=== PATIENT | female | born 2000 | race Caucasian/White ===

== ENCOUNTER 2021-02-13 12:55 | Emergency (ER) | payer MEDICAID, SELFPAY ==
[2021-02-13 12:55] VITALS: BP 130/88; PULSE 86; RESP 16; TEMP 36.6; O2SAT 98; BMI 40.8
--- NOTE | 2021-02-13 13:20 | EX.ED.DYSGE1 ---
HPI History of Present Illness Chief Complaint: Nausea/Vomiting Informant: patient Onset/Context/Timing Onset: Days Context: Gradual Onset Timing: Intermittent Current Severity: Moderate Maximum Severity: Moderate Narrative Narrative: Patient presents the emergency department nausea vomiting. Patient states is been going on for about a week. She states that she is taken 2 home test which were negative. She states worse in the morning. She states that she started work today. She states she ate lunch and shortly after, began to have some abdominal cramping and spasm. She states that she had an episode of emesis. She was concerned there may been blood in it. She denies fever or chills. She denies other systemic symptoms. She has no history of abdominal surgery. Prior similar symptoms: No Recent Illness/Hospitalization: No PFSH PFSH Medical History (Updated 02/13/21 @ 13:54 by Dion Saleh) Anxiety Bipolar disorder Depression Home Medications aripiprazole [Abilify] 15 mg PO DAILY 02/13/21 [History Last Taken Unknown] buspirone [BuSpar] 30 mg PO BID 02/13/21 [History Last Taken Unknown] famotidine 20 mg PO BID #28 tablet 02/13/21 [Rx Last Taken Unknown] ondansetron 4 mg PO Q8H PRN PRN #10 tab 02/13/21 [Rx Last Taken Unknown] Allergy/AdvReac Type Severity Reaction Status Date / Time No Known Allergies Allergy Verified 02/13/21 12:58 Surgical History (Updated 02/13/21 @ 13:54 by Dion Saleh) History of section History of placement of ear tubes History of tonsillectomy and adenoidectomy Social History Smoking Status: Current every day smoker tobacco type: cigarettes ROS ROS ED Constitutional Constitutional ED: Denies chills or fever(s) Eyes Eyes: Denies blurry vision or change in vision ENT ENT ED: Denies ear pain or sore throat Cardiovascular Cardiovascular: Denies chest pain or palpitations Respiratory/Chest Respiratory/Chest: Denies cough, dyspnea or dyspnea on exertion Gastrointestinal Gastrointestinal: Reports nausea and vomiting Genitourinary Genitourinary ED: Denies dysuria or urinary frequency Musculoskeletal Musculoskeletal: Denies arthralgias or myalgias Integumentary Denies rash Neurologic Neurologic: Denies headache(s) or paresthesias Psychiatric Psychiatric: Denies anxiety or depression Endocrine Endocrinology: Denies polydipsia or polyuria Allergic/Immunologic Allergic/Immunologic ED: Denies urticaria EXAM Physical Exam Const Vital Signs: 02/13/21 12:55 Temperature 97.8 F Temperature Source Temporal Pulse Rate 86 Respiratory Rate 16 Blood Pressure 130/88 H Blood Pressure Mean 102 Pulse Ox 98 Oxygen Delivery Method Room Air Positive well nourished and well developed General Appearance ED: well developed HEENT Reports normocephalic, head/scalp atraumatic and moist mucous membranes Eyes PERRL and EOMs intact bilaterally Neck no lymphadenopathy and supple General: Negative for tenderness Chest Wall inspection of chest normal Resp normal respiratory effort and clear to auscultation bilaterally Cardio regular rate, regular rhythm and no murmurs GI normal to inspection, nondistended, normoactive bowel sounds Palpation: Negative for tender, guarding or rebound tenderness present Back/Spine no CVA tenderness Cervical Spine: Negative for cervical spine tenderness Thoracic Spine / Upper Back: Negative for thoracic spinal tenderness Extremity normal to inspection General Extremety ED: Negative for tenderness Neuro oriented x3 and CN's II-XII intact bilaterally Neuro Narrative: No focal deficits appreciated. Sensorium / Orientation: alert Psych mental status grossly normal Skin no rashes or lesions noted, no wounds and skin turgor normal MDM MDM MDM Narrative Medical decision making narrative: Patient presents with nausea vomiting. Her abdomen is soft and nontender. IV was established. The patient is concerned that she may be . Screening labs are obtained. Patient had no further emesis while she was here. Hemoglobin is stable. Her labs are unremarkable. Her was negative. Not sure if this is secondary to gastritis or peptic ulcer. I am going to treat the patient with Zofran and Pepcid. She is not on anticoagulants. She has normal vitals. She will be discharged home. Impression 1. Nausea vomiting Lab Data Attestation: I reviewed the patient's lab results. Labs: Laboratory Results - last 24 hr 02/13/21 02/13/21 02/13/21 13:50 13:50 13:50 WBC 9.6 RBC 5.27 Hgb 14.8 Hct 44.7 MCV 84.8 MCH 28.1 MCHC 33.1 RDW Std Deviation 42.5 RDW Coeff of [place] 13.7 Plt Count 292 MPV 11.1 Immature Gran % (Auto) 0.300 Neut % (Auto) 51.1 Lymph % (Auto) 40.2 [place] % (Auto) 5.0 Eos % (Auto) 3.0 Baso % (Auto) 0.4 Absolute Neuts (auto) 4.9 Absolute Lymphs (auto) 3.84 Nucleated RBC % 0 Sodium 139 Potassium 4.1 Chloride 109 H Carbon Dioxide 24.0 Anion Gap 6 BUN 11 Creatinine 0.72 Estim Creat Clear Calc 107.63 Est GFR (MDRD) Af Amer 133 Est GFR (MDRD) Non-Af 110 BUN/Creatinine Ratio 15.4 Glucose 86 Calcium 8.9 Serum , Qual NEGATIVE Discharge Plan Triage Chief Complaint: Nausea/Vomiting ED Provider: Jean Dodge Dx/Rx/DC Orders Instructions: ED PEPTIC ULCER vs GASTRITIS, ED Vomiting (Adult) Prescriptions: New famotidine [famotidine] 20 MG tablet 20 mg PO BID Qty: 28 RF: 0 ondansetron [ondansetron] 4 MG tablet 4 mg PO Q8H PRN PRN (Reason: Nausea) Qty: 10 RF: 0 No Action buspirone [BuSpar] 30 mg Tablet 30 mg PO BID RF: 0 aripiprazole [Abilify] 15 mg Tablet 15 mg PO DAILY RF: 0 Primary Care Provider: Care Physician,No Primary Referrals: Care Physician,No Primary [Primary Care Provider] -
[2021-02-13] MEDS: Ondansetron 4 MG/2 ML Vial IV (13:52)
[2021-02-13] MEDS: 0.9% Normal Saline 1,000 ML 1000 ML IV (13:52)
[2021-02-13 14:03] LABS: Absolute Lymphocyte Count 3.84 X10^3/uL (0.83-4.51); Absolute Neutrophil Count 4.9 X10^3/uL (2.0-7.7); Basophil# 0.04 X10^3/uL; Basophil% 0.4 % (0-1); Eosinophil# 0.29 X10^3/uL; Hematocrit 44.7 % (37-47); Hemoglobin 14.8 g/dL (12.0-15.0); Lymphocyte # 3.84 X10^3/ul (0.83-4.51); Lymphocyte % 40.2 % (19-41); Mean Corp Hgb Conc 33.1 g/dL (32-36); Mean Corpuscular Hgb 28.1 pg (27.0-32.0); Mean Corpuscular Volume 84.8 fL (81-99); Mean Platelet Vol. 11.1 fl (6.2-12.0); Monocyte# 0.48 X10^3/uL; NRBC Flagged by Analyzer 0 % (0-5); Neutrophil # 4.87 X10^3/uL (2.7-7.7); Neutrophil % 51.1 % (47-70); Platelet Count 292 K/mm3 (150-450); RBC Distribution Width CV 13.7 % (11.6-14.6); RBC Distribution Width SD 42.5 fl (35.1-43.9); Red Blood Count 5.27 M/mm3 (4.2-5.4); White Blood Count 9.6 K/mm3 (4.4-11.0)
[2021-02-13 14:14] LABS: Anion Gap 6 (5-15); BUN 11 mg/dL (7-18); BUN/Creat Ratio 15.4 RATIO (10-20); Calcium,Total 8.9 mg/dL (8.5-10.1); Chloride 109 mmol/L (98-107); Creatinine, Serum 0.72 mg/dL (0.55-1.02); EST Glomerular Filtration Rate 110 mL/min (>60); Est Glom Filt Rate - Afr Amer 133 mL/min (>60); Estimated Creatinine Clearance 107.63 ml/min; Glucose 86 mg/dL (74-106); Potassium 4.1 mmol/L (3.5-5.1); Sodium Level 139 mmol/L (136-145)
[2021-02-13 14:20] LABS: Internal QC Validated? YES +Cl - CLEAR BKGD; Pregnancy, Serum, hCG Quali. NEGATIVE Negative
[2021-02-13 14:38] VITALS: BP 124/56; PULSE 60; RESP 18; O2SAT 100
== END 2021-02-13 14:44 | disposition home or self-care (01) ==
LOC: ED 14:09
PROVIDERS: Emergency Provider Emergency Medicine
DX: R11.2 Nausea with vomiting, unspecified (principal); R10.9 Unspecified abdominal pain; F17.210 Nicotine dependence, cigarettes, uncomplicated; F41.9 Anxiety disorder, unspecified; Z79.899 Other long term (current) drug therapy
CPT/HCPCS: 80048; 84703; 85025; 96374; 99283; J7030; A4216; J2405

== ENCOUNTER 2021-06-30 20:29 | Emergency (ER) | payer MEDICAID, SELFPAY ==
[2021-06-30 20:30] VITALS: BP 114/71; PULSE 98; RESP 16; TEMP 36.3; O2SAT 99; BMI 38.5
--- NOTE | 2021-06-30 20:44 | ED.VIS.GI ---
HPI HPI - GI History of Present Illness Chief Complaint: Abd Pain Detail of Chief Complaint: Abdominal pain that started approximately 8:10 PM Informant: patient Abdominal Pain/Flank Pain Current Severity: Mild Nausea/Vomiting/Emesis GI Symptom: Positive for Nausea and Vomiting Narrative Narrative: Patient presents to the emergency department complaint of abdominal pain that started approximately 8:10 PM. Patient states that she was laying down when she started having severe pain in the upper abdomen that kind of radiates to the left side of her abdomen. Patient had eaten about a half an hour prior to the pain starting and she ate some fried potatoes and some turkey cold also. Patient did have 1 episode of emesis. Patient tells me she is and is 7 weeks 4 days along. Patient is . She denies any vaginal bleeding. She denies lower abdomen pain. Patient states that she had a ultrasound for dates last week. Patient denies recent illness. She denies fevers. She denies urinary symptoms. Patient does state that she has had frequent nausea and vomiting related to the . Prior to today she had not been having abdominal pain with eating. PFSH [facility] Medical History (Updated 06/30/21 @ 22:[address] Angus Aaron DO) Anxiety Bipolar disorder Depression Home Medications aripiprazole [Abilify] 15 mg PO DAILY 02/13/21 [History Last Taken Unknown] buspirone [BuSpar] 30 mg PO BID 02/13/21 [History Last Taken Unknown] famotidine 20 mg PO BID #28 tablet 02/13/21 [Rx Last Taken Unknown] ondansetron 4 mg PO Q8H PRN PRN #10 tab 02/13/21 [Rx Last Taken Unknown] Allergy/AdvReac Type Severity Reaction Status Date / Time No Known Allergies Allergy Verified 06/30/21 20:32 Surgical History (Updated 02/13/21 @ 13:54 by Dion Saleh) History of section History of placement of ear tubes History of tonsillectomy and adenoidectomy Social History Smoking Status: Current every day smoker tobacco type: cigarettes ROS ROS ED Constitutional Constitutional ED: Reports systems reviewed and no addt'l complaints, except as documented; Denies body ache(s), change in weight or chills Eyes Eyes: Denies acute decrease in peripheral vision, change in vision, double vision or loss of vision ENT ENT ED: Reports none; Denies ear pain, lip swelling, loss taste/smell, neck pain, otalgia or sore throat Cardiovascular Cardiovascular: Reports none; Denies abdominal pain, chest pain with activity, leg edema, lightheadedness, palpitations, rapid heart rate or syncope Respiratory/Chest Respiratory/Chest: Reports none; Denies change in mental status, dry cough, dyspnea, hemoptysis, shortness of breath at rest or shortness of breath with exertion Gastrointestinal Gastrointestinal: Reports abdominal pain, nausea and vomiting Genitourinary Genitourinary ED: Reports none; Denies abdominal discomfort, anuria, dysuria, genital pain or polyuria Musculoskeletal Musculoskeletal: Reports none; Denies arthralgias, back pain, difficulty walking, extremity pain, muscle weakness or myalgias Integumentary Reports none; Denies abscess or rash Neurologic Neurologic: Reports none; Denies abnormal gait, confusion, focal weakness, frequent falls, headache(s), loss of vision, numbness, paresthesias, radicular pain, vertigo or weakness Psychiatric Psychiatric: Reports systems reviewed and no addt'l complaints, except as documented and none; Denies behavioral changes, confusion, difficulty concentrating, hallucinations, suicidal ideation, tactile hallucinations or visual hallucinations Endocrine Endocrinology: Denies none, cold intolerance, excessive sweating, fatigue or heat intolerance Hematologic/Lymphatic Hematologic/Lymphatic: Reports none; Denies anemia, easy bleeding or easy bruising Allergic/Immunologic Allergic/Immunologic ED: Denies as per HPI, none, lip swelling, mouth swelling, throat swelling, tongue swelling or hives EXAM Physical Exam Const Vital Signs: 06/30/21 20:30 Temperature 97.3 F L Temperature Source Temporal Pulse Rate 98 Respiratory Rate 16 Blood Pressure 114/71 Blood Pressure Mean 85 Pulse Ox 99 Oxygen Delivery Method Room Air Positive well nourished and well developed General Appearance ED: well developed and NAD HEENT Reports TM's clear and moist mucous membranes normocephalic and atraumatic; Negative for trauma or tenderness Tympanic Membrane ED: Yes TM's clear Eyes PERRL and EOMs intact bilaterally General Eye ED: Negative for pale conjunctiva or scleral icterus Neck no lymphadenopathy, supple and no JVD General: Negative for tenderness Chest Wall inspection of chest normal and palpation of chest normal Chest: Negative for tenderness Resp normal respiratory effort and clear to auscultation bilaterally Effort and Inspection: Negative for respiratory distress or pain with movement Auscultation: Negative for rhonchi, wheezes or diminished lung sounds Cardio regular rate, regular rhythm, S1 normal heart sound, S2 normal heart sound and no murmurs Peripheral Pulses: pulses 2+ throughout GI normal to inspection, nondistended, normoactive bowel sounds, soft to palpation, non-distended and no masses GI Narrative: Patient has tenderness to palpation over the epigastric region and left upper quadrant. There is no rebound, rigidity, or peritoneal signs. No tenderness over the lower abdomen over the right lower quadrant or left lower quadrant. She has no tenderness over the suprapubic region. There is no rebound, rigidity, or peritoneal signs. Palpation: tender Back/Spine no CVA tenderness and no thoracic nor lumbar tenderness Extremity normal to inspection General Extremety ED: Negative for edema General Extremity: Negative for edema Neuro oriented x3, CN's II-XII intact bilaterally, no sensory deficits noted and gait normal Sensorium / Orientation: awake, alert, oriented to person, oriented to place and oriented to time Motor Exam: strength 5/5 throughout and strength abnormal Psych mental status grossly normal Skin no rashes or lesions noted and no wounds MDM MDM MDM Narrative Medical decision making narrative: IV line established on arrival. Patient was given a GI cocktail which resolved her pain. She also received Zofran 4 mg IV. At this point she is pain-free. I suspect she may have had some reflux and GERD type symptoms. She will follow-up with her [facility] if symptoms persist. Patient advised to return if worsening pain, fever, vomiting, or condition should worsen anyway. At this point I do not feel any imaging is indicated especially given her state. Lab Data Attestation: I reviewed the patient's lab results. Labs: Laboratory Results - last 24 hr 06/30/21 06/30/21 06/30/21 20:58 20:58 21:23 WBC 10.2 RBC 4.80 Hgb 14.0 Hct 40.1 MCV 83.5 MCH 29.2 MCHC 34.9 RDW Std Deviation 41.1 RDW Coeff of [place] 13.2 Plt Count 300 MPV 11.0 Immature Gran % (Auto) 0.200 Neut % (Auto) 51.2 Lymph % (Auto) 39.2 [place] % (Auto) 6.7 Eos % (Auto) 2.4 Baso % (Auto) 0.3 Absolute Neuts (auto) 5.2 Absolute Lymphs (auto) 4.00 Nucleated RBC % 0 Sodium 139 Potassium 3.5 Chloride 110 H Carbon Dioxide 21.0 Anion Gap 8 BUN 6 L Creatinine 0.55 Estim Creat Clear Calc 139.72 Est GFR (MDRD) Af Amer 179 Est GFR (MDRD) Non-Af 148 BUN/Creatinine Ratio 10.9 Glucose 108 H Calcium 9.0 Total Bilirubin 0.30 AST 18 ALT 25 Alkaline Phosphatase 63 Total Protein 7.3 Albumin 3.1 L Globulin 4.2 Albumin/Globulin Ratio 0.7 L Lipase 79 Urine Color Yellow Urine Clarity Clear Urine pH 6.0 Ur Specific [place] 1.030 Urine Protein Negative Urine Glucose (UA) Normal Urine Ketones 5 H Urine Occult Blood Negative Urine Nitrite Negative Urine Bilirubin Negative Urine Urobilinogen Normal Ur Leukocyte Esterase 100 H Urine RBC 0 SEEN Urine WBC 0-5 SEEN Ur Squamous Epith Cells 0-5 SEEN Urine Bacteria RARE Urine Mucus 0 SEEN Discharge Plan Triage Chief Complaint: Abd Pain ED Provider: Angus Aaron Dx/Rx/DC Orders Clinical Impression: Gastroesophageal reflux disease, Abdominal pain Instructions: Abdominal Pain, ED GERD (Adult) Prescriptions: No Action buspirone [BuSpar] 30 mg Tablet 30 mg PO BID RF: 0 aripiprazole [Abilify] 15 mg Tablet 15 mg PO DAILY RF: 0 famotidine [famotidine] 20 MG tablet 20 mg PO BID Qty: 28 RF: 0 ondansetron [ondansetron] 4 MG tablet 4 mg PO Q8H PRN PRN (Reason: Nausea) Qty: 10 RF: 0 Primary Care Provider: Care Physician,No Primary Referrals: Care Physician,No Primary [Primary Care Provider] - Activity Restrictions/Additional Instructions: See your [facility] within the next 3 to 5 days. Avoid spicy and greasy foods.
[2021-06-30] MEDS: 0.9% Normal Saline 1,000 ML 125 ML IV (20:59)
[2021-06-30] MEDS: Ondansetron 4 MG/2 ML Vial IV (20:59)
[2021-06-30] MEDS: Mag Hydrox/Al Hydrox/Simeth 30 ML UDC PO (21:00)
[2021-06-30 21:11] LABS: Absolute Neutrophil Count 5.2 X10^3/uL (2.0-7.7); Basophil# 0.03 X10^3/uL; Basophil% 0.3 % (0-1); Eosinophil# 0.24 X10^3/uL; Eosinophils% 2.4 % (0-5); Hematocrit 40.1 % (37-47); Lymphocyte % 39.2 % (19-41); Mean Corp Hgb Conc 34.9 g/dL (32-36); Mean Corpuscular Hgb 29.2 pg (27.0-32.0); Mean Corpuscular Volume 83.5 fL (81-99); Monocyte# 0.68 X10^3/uL; Monocyte% 6.7 % (0-10); NRBC Flagged by Analyzer 0 % (0-5); Neutrophil # 5.24 X10^3/uL (2.7-7.7); Neutrophil % 51.2 % (47-70); Platelet Count 300 K/mm3 (150-450); RBC Distribution Width CV 13.2 % (11.6-14.6); RBC Distribution Width SD 41.1 fl (35.1-43.9); White Blood Count 10.2 K/mm3 (4.4-11.0)
[2021-06-30 21:26] LABS: ALB/GLOB Ratio 0.7 RATIO (0.9-2.4); AST(SGOT) 18 U/L (15-37); Alanine Aminotransfer ALT/SGPT 25 U/L (13-56); Albumin, Serum 3.1 g/dL (3.2-5.0); Alkaline Phosphatase 63 U/L (45-117); Anion Gap 8 (5-15); BUN 6 mg/dL (7-18); BUN/Creat Ratio 10.9 RATIO (10-20); Chloride 110 mmol/L (98-107); Creatinine, Serum 0.55 mg/dL (0.55-1.02); EST Glomerular Filtration Rate 148 mL/min (>60); Est Glom Filt Rate - Afr Amer 179 mL/min (>60); Estimated Creatinine Clearance 139.72 ml/min; Globulin 4.2 g/dL (2.2-4.2); Glucose 108 mg/dL (74-106); Lipase 79 U/L (73-393); Potassium 3.5 mmol/L (3.5-5.1); Protein, Total 7.3 g/dL (6.4-8.2); Sodium Level 139 mmol/L (136-145)
[2021-06-30 21:34] LABS: Mucous, Urine 0 SEEN /hpf (<or=2+); Red Blood Cells-Urine 0 SEEN /hpf (0-5)
[2021-06-30 21:36] LABS: Color, Urine Yellow (Yellow); Glucose, Dipstick Normal (Normal); Ketone-Dipstick 5 mg/dl (Negative); Leukocyte Esterase-Dipstick 100 /ul (Negative); Nitrite-Dipstick Negative (Negative); Occult Blood-Urine Negative /ul (Negative); Protein-Dipstick Negative (Negative); Urine Bilirubin Dipstick Negative (Negative); Urine Clarity Clear (Clear); Urine Urobilinogen Normal (Normal)
[2021-06-30 21:44] LABS: Bacteria RARE /hpf (None Seen); Squamous Epithelial Cells - UA 0-5 SEEN /hpf (5-10); White Blood Cells 0-5 SEEN /hpf (0-5)
== END 2021-06-30 22:07 | disposition home or self-care (01) ==
PROVIDERS: Emergency Provider Emergency Medicine
DX: O26.891 Other specified pregnancy related conditions, first trimester (principal); K21.9 Gastro-esophageal reflux disease without esophagitis; O99.340 Other mental disorders complicating pregnancy, unspecified trimester; F41.9 Anxiety disorder, unspecified; F31.9 Bipolar disorder, unspecified; O99.331 Smoking (tobacco) complicating pregnancy, first trimester; F17.210 Nicotine dependence, cigarettes, uncomplicated; Z3A.01 Less than 8 weeks gestation of pregnancy
CPT/HCPCS: 80053; 81001; 83690; 85025; 96361; 96374; 99284; J2405

== ENCOUNTER 2021-07-07 11:37 | Emergency (ER) | payer MEDICAID, SELFPAY ==
[2021-07-07 11:39] VITALS: BP 137/79; PULSE 98; RESP 18; TEMP 35.9; O2SAT 98; BMI 38.6
--- NOTE | 2021-07-07 11:50 | EDS_ITS ---
HPI HPI - GI History of Present Illness Chief Complaint: Abd Pain Detail of Chief Complaint: 8 weeks with pelvic cramping. Informant: patient Abdominal Pain/Flank Pain Onset: Days Context: Gradual Onset Timing: Intermittent Quality: Cramping Current Severity: Mild Maximum Severity: Mild Worsened by: Nothing Relieved by: Nothing Nausea/Vomiting/Emesis GI Symptom: Negative for Nausea Diarrhea/Melena/Hematochezia GI Symptom: Negative for Diarrhea Associated Symptoms Associated Symptoms: Negative for Dysuria Narrative Narrative: 21-year-old female G2, P1 Ab0 currently 8 weeks and 4 days . Is cared for by an ENVIRONMENTAL PROTECTION SPECIALIST physician in [place]. States that she is having pelvic cramping. Denies any vaginal bleeding or discharge. No dysuria. No fever. She said she is used Tylenol and soaked in a warm bathtub but has not given her any relief. She denies any vomiting or diarrhea. No dysuria. Her due date is 02/12/2022. She had no major issues with her first . That was delivered by . Prior similar symptoms: Yes Recent Illness/Hospitalization: No PFSH PFSH Medical History Anxiety Bipolar disorder Depression Home Medications cephalexin 500 mg PO Q6H 7 Days #28 cap 07/07/21 [Rx Last Taken Unknown] ondansetron [Zofran ODT] 4 mg PO Q8H PRN 07/07/21 [History Last Taken Unknown] [id number] [] 1 tab PO DAILY 07/07/21 [History Last Taken Unknown] Allergy/AdvReac Type Severity Reaction Status Date / Time No Known Allergies Allergy Verified 07/07/21 11:38 Surgical History History of section History of placement of ear tubes History of tonsillectomy and adenoidectomy Social History Smoking Status: Current every day smoker tobacco type: cigarettes ROS ROS ED ROS Narrative Denies. Review of Systems ROS Unobtainable: Denies due to encephalopathy Constitutional Constitutional ED: Denies fever(s) ENT ENT ED: Denies ear pain Cardiovascular Cardiovascular: Denies chest pain Respiratory/Chest Respiratory/Chest: Denies dyspnea Gastrointestinal Gastrointestinal: Denies abdominal pain Genitourinary Genitourinary ED: Denies dysuria Musculoskeletal Musculoskeletal: Denies myalgias Integumentary Denies rash Neurologic Neurologic: Denies headache(s) Psychiatric Psychiatric: Denies depression Endocrine Endocrinology: Denies polyuria Hematologic/Lymphatic Hematologic/Lymphatic: Denies easy bruising Allergic/Immunologic Allergic/Immunologic ED: Denies urticaria EXAM Physical Exam Narrative Exam Narrative: 9-year-old female no acute distress vital signs stable afebrile. HEENT exam unremarkable. Neck nontender no lymphadenopathy. Lungs clear to auscultation. Heart regular rhythm no murmur. Abdomen soft nondistended normal bowel sounds no peritoneal signs. No right upper or right lower quadrant tenderness. Moving all 4 extremities. Calves are nontender without edema. Neurologically awake and alert. Const Vital Signs: 07/07/21 11:39 Temperature 96.7 F L Temperature Source Temporal Pulse Rate 98 Respiratory Rate 18 Blood Pressure 137/79 H Blood Pressure Mean 98 Pulse Ox 98 Oxygen Delivery Method Room Air Positive well nourished and well developed; Negative for cachectic, contractures or unkempt General Appearance ED: well developed and NAD; Negative for unkempt, cachectic, contractures or pallor Nutritional Appearance: Negative for cachectic HEENT Reports moist mucous membranes normocephalic and atraumatic Eyes PERRL and EOMs intact bilaterally Neck no lymphadenopathy, supple and no JVD General: Negative for tenderness Resp normal respiratory effort and clear to auscultation bilaterally Auscultation: Negative for rales, rhonchi or wheezes Cardio regular rate, regular rhythm, S1 normal heart sound, S2 normal heart sound and no murmurs GI non-tender, non-distended and no masses Inspection: Negative for abdominal distention Auscultation: normoactive bowel sounds Palpation: soft; Negative for tender, guarding, rigid or rebound tenderness present Back/Spine no CVA tenderness General Back: Negative for CVA tenderness Extremity full ROM General Extremety ED: Negative for edema or tenderness General Extremity: Negative for edema Neuro moves all extremities Sensorium / Orientation: alert, oriented to person, oriented to place and oriented to time; Negative for orientation impaired Motor Exam: strength 5/5 throughout Psych mental status grossly normal Appearance: Negative for unkempt Skin no wounds General Skin Exam: Negative for jaundice or pallor Lesions: no lesions Rashes: no rashes MDM MDM MDM Narrative Medical decision making narrative: 21-year-old female G2, P1 Ab0 with pelvic cramping 8 weeks and 4 days . Exam benign. Will check a urinalysis. And heart tones. She has already had an ultrasound done in her ENVIRONMENTAL PROTECTION SPECIALIST's office showing an intrauterine . Bedside ultrasound done by emergency physician shows intrauterine with cardiac activity. Repeat exam patient is doing well at 12:35 PM and will be discharged home with a prescription for possible cystitis for Keflex 4 times a day for 1 week. Urine culture sent. Lab Data Attestation: I reviewed the patient's lab results. Lab results narrative: Urinalysis shows no nitrites 5-10 white cells 2+ bacteria and 0 epithelial cells a culture will be sent and she will be started on Keflex for 1 week. I will discuss these results with her and that the culture needs followed up. Labs: Laboratory Results - last 24 hr 07/07/21 12:09 Urine Color Yellow Urine Clarity Clear Urine pH 6.5 Ur Specific [place] 1.015 Urine Protein Negative Urine Glucose (UA) Normal Urine Ketones Negative Urine Occult Blood Negative Urine Nitrite Negative Urine Bilirubin Negative Urine Urobilinogen Normal Ur Leukocyte Esterase 100 H Urine RBC 0 SEEN Urine WBC 5-10 SEEN Ur Squamous Epith Cells 0-5 SEEN Urine Bacteria 2+ Urine Mucus 0 SEEN Discharge Plan Triage Chief Complaint: Abd Pain ED Provider: Karlos Severino Dx/Rx/DC Orders Clinical Impression: Pelvic pain, Cystitis Instructions: ED Pelvic Pain, Unknown Cause, ED CYSTITIS Female Adult Prescriptions: New cephalexin 500 mg capsule 500 mg PO Q6H 7 Days Qty: 28 RF: 0 No Action 1 mg Tablet 1 tab PO DAILY RF: 0 ondansetron [Zofran ODT] 4 mg Tablet,Disintegrating 4 mg PO Q8H PRN (Reason: Nausea) RF: 0 Primary Care Provider: Care Physician,No Primary Referrals: Care Physician,No Primary [Primary Care Provider] - Activity Restrictions/Additional Instructions: Plenty of fluids and rest. Tylenol for pain. You may have an early urinary tract infection. We will start you on antibiotic Keflex 4 times a day for a week. A urine culture was sent your ENVIRONMENTAL PROTECTION SPECIALIST physician can follow-up those results in 2 days. Follow-up with your ENVIRONMENTAL PROTECTION SPECIALIST to ensure you are improving. Return if you are feeling worse such as fever, back pain or intractable vomiting. At this time your appears to be fine at 8 weeks. Disposition Disposition: Home, Self Care
[2021-07-07 12:15] LABS: Mucous, Urine 0 SEEN /hpf (<or=2+); Red Blood Cells-Urine 0 SEEN /hpf (0-5)
[2021-07-07 12:16] LABS: Color, Urine Yellow (Yellow); Glucose, Dipstick Normal (Normal); Ketone-Dipstick Negative (Negative); Leukocyte Esterase-Dipstick 100 /ul (Negative); Nitrite-Dipstick Negative (Negative); Occult Blood-Urine Negative /ul (Negative); Protein-Dipstick Negative (Negative); Specific Gravity, Urine 1.015 (1.002-1.030); Urine Bilirubin Dipstick Negative (Negative); Urine Clarity Clear (Clear); Urine Urobilinogen Normal (Normal); Urine pH 6.5 (5.0 - 8.0)
[2021-07-07 12:22] LABS: Bacteria 2+ /hpf (None Seen); Squamous Epithelial Cells - UA 0-5 SEEN /hpf (5-10); White Blood Cells 5-10 SEEN /hpf (0-5)
[2021-07-07] MEDS: Cephalexin 250 MG Capsule 500 MG PO (12:44)
== END 2021-07-07 12:46 | disposition home or self-care (01) ==
PROVIDERS: Emergency Provider Emergency Medicine
DX: O23.11 Infections of bladder in pregnancy, first trimester (principal); N30.90 Cystitis, unspecified without hematuria; O26.891 Other specified pregnancy related conditions, first trimester; R10.2 Pelvic and perineal pain; O99.331 Smoking (tobacco) complicating pregnancy, first trimester; F17.210 Nicotine dependence, cigarettes, uncomplicated; Z3A.08 8 weeks gestation of pregnancy
CPT/HCPCS: 81001; 87077; 87086; 87088; 99283

== ENCOUNTER 2021-07-24 18:13 | Emergency (ER) | payer MEDICAID, SELFPAY ==
[2021-07-24 18:14] VITALS: BP 99/68; PULSE 109; RESP 18; TEMP 35.8; O2SAT 98; BMI 37.8
--- NOTE | 2021-07-24 18:34 | ED.RN ---
PT LWBS [id number]
== END 2021-07-24 18:35 | disposition left against medical advice (07) ==
LOC: ED 18:34
DX: O26.891 Other specified pregnancy related conditions, first trimester (principal); R10.9 Unspecified abdominal pain; Z3A.11 11 weeks gestation of pregnancy

== ENCOUNTER 2022-04-11 16:48 | Emergency (ER) | payer MEDICAID, SELFPAY ==
[2022-04-11 16:49] VITALS: BP 127/84; PULSE 109; RESP 18; TEMP 35.9; O2SAT 98; BMI 39.7
[2022-04-11 16:51] VITALS: BP 127/84; PULSE 109; RESP 18; TEMP 35.9; O2SAT 98
--- NOTE | 2022-04-11 17:43 | CM.ED ---
Social Work Note Reason for Referral: No PCP SW reviewed chart. No PCP listed for pt. SW in to speak with pt. Pt states that she has a PCP and it is Dr. Khan in [place]. Ursula Gruber GRADER T[employer]ER, [employer]
--- NOTE | 2022-04-11 17:51 | ED.VIS.FEGU ---
HPI HPI - Female History of Present Illness Chief Complaint: Vag Bleeding Informant: patient Narrative Narrative: Reported increasing vaginal bleeding pelvic cramping since this morning. Went to restroom large clot. Patient followed by [facility] for [facility], started on oral contraceptives little over 2 weeks ago when bleeding started. She followed up with them again and was told to continue the oral medications. She had bleeding for 2 weeks which stopped 2 days ago until return today. 2 weeks ago was the beginning of her menstrual period. No urinary symptoms. Denies history of similar. Denies lightheaded symptoms. Denies anticoagulation medicines. Prior similar symptoms: No PFSH PFSH Medical History Anxiety Bipolar disorder Depression Home Medications cephalexin 500 mg capsule 500 mg PO Q6H 7 days #28 caps 07/07/21 [Rx Last Taken Unknown] ondansetron 4 mg disintegrating tablet 4 mg PO Q8H PRN Nausea 07/07/21 [History Last Taken Unknown] [id number] 1 mg tablet 1 tab PO DAILY 07/07/21 [History Last Taken Unknown] Allergy/AdvReac Type Severity Reaction Status Date / Time No Known Allergies Allergy Verified 07/24/21 18:17 Surgical History History of section History of placement of ear tubes History of tonsillectomy and adenoidectomy Social History Smoking Status: Current every day smoker tobacco type: cigarettes ROS ROS ED Constitutional Constitutional ED: Denies chills, fever(s) or sweats Eyes Eyes: Denies change in vision ENT ENT ED: Denies dysphagia or sore throat Cardiovascular Cardiovascular: Denies chest pain, leg edema, palpitations or racing heartbeat Respiratory/Chest Respiratory/Chest: Denies cough, dyspnea or dyspnea on exertion Gastrointestinal Gastrointestinal: Denies abdominal pain, diarrhea, nausea or vomiting Genitourinary Genitourinary ED: Reports other Details: Pelvic cramping, vaginal bleeding ; Denies dysuria, hematuria or urinary frequency Musculoskeletal Musculoskeletal: Denies back pain, extremity pain or neck pain Integumentary Denies rash or wounds Neurologic Neurologic: Denies headache(s), paresthesias or weakness EXAM Physical Exam Const Vital Signs: 04/11/22 16:49 04/11/22 16:51 04/11/22 18:50 Temperature 96.6 F L 96.6 F L Temperature Source Temporal Temporal Pulse Rate 109 H 109 H 97 Respiratory Rate 18 18 16 Blood Pressure 127/84 H 127/84 H 145/97 H Blood Pressure Mean 98 98 Pulse Ox 98 98 99 Oxygen Delivery Method Room Air Room Air Positive well nourished and well developed General Appearance ED: well developed and NAD HEENT Reports moist mucous membranes normocephalic and atraumatic Eyes PERRL, EOMs intact bilaterally and conjunctivae normal General Eye ED: Yes normal appearance of both eyes Neck no lymphadenopathy and supple General: Negative for tenderness Chest Wall Chest: Negative for tenderness Resp normal respiratory effort and normal air movement Effort and Inspection: symmetric chest movement; Negative for respiratory distress Cardio regular rate, regular rhythm and no murmurs Peripheral Pulses: pulses 2+ throughout GI normal to inspection, nondistended, normoactive bowel sounds and non-tender Palpation: Negative for guarding or rebound tenderness present Narrative: Nursing present for pelvic exam. No external lesions noted. Speculum examination showed no blood in the vault, there is normal cervix. Back/Spine no CVA tenderness and no thoracic nor lumbar tenderness Extremity normal to inspection General Extremety ED: Negative for edema or tenderness General Extremity: Negative for edema Neuro oriented x3 and no sensory deficits noted Sensorium / Orientation: awake and alert Skin no rashes or lesions noted and no wounds MDM MDM MDM Narrative Medical decision making narrative: hCG negative. Hemoglobin 13.7. Pelvic exam negative for any signs of blood in the vault. She will monitor bleeding issues. She will call her MEDICAL TRANSCRIPTION EDITOR office for outpatient follow-up and discussion. This is likely secondary to her oral contraceptives for which she is recently placed on. Work note was given. Return precautions. Lab Data Attestation: I reviewed the patient's lab results. Labs: Laboratory Results - last 24 hr 04/11/22 04/11/22 17:45 17:45 WBC 8.5 RBC 5.27 Hgb 13.7 Hct 42.5 MCV 80.6 L MCH 26.0 L MCHC 32.2 RDW Std Deviation 51.5 H RDW Coeff of [place] 18.2 H Plt Count 317 MPV 10.4 Immature Gran % (Auto) 0.400 Neut % (Auto) 43.4 L Lymph % (Auto) 46.9 H [place] % (Auto) 5.4 Eos % (Auto) 3.4 Baso % (Auto) 0.5 Absolute Neuts (auto) 3.7 Absolute Lymphs (auto) 3.98 Serum , Qual NEGATIVE Discharge Plan Triage Chief Complaint: Vag Bleeding ED Provider: Ignacio Zavala Dx/Rx/DC Orders Clinical Impression: DUB (dysfunctional uterine bleeding), Oral contraceptive use, Pelvic cramping Instructions: ED Dysfunctional Uterine Bleeding Prescriptions: No Action 1 mg Tablet 1 tab PO DAILY ondansetron [Zofran ODT] 4 mg Tablet,Disintegrating 4 mg PO Q8H PRN (Reason: Nausea) cephalexin 500 mg capsule 500 mg PO Q6H 7 Days Qty: 28 0RF Primary Care Provider: Care Physician,No Primary Referrals: Care Physician,No Primary [Primary Care Provider] - Activity Restrictions/Additional Instructions: negative, hemoglobin normal. Discussed with your MEDICAL TRANSCRIPTION EDITOR office at [facility] and follow-up as an outpatient. Disposition Disposition: Home, Self Care Discharge Date/Time: 04/11/22 18:51
[2022-04-11 18:10] LABS: Hematocrit 42.5 % (37-47); Hemoglobin 13.7 g/dL (12.0-15.0); Mean Corp Hgb Conc 32.2 g/dL (32-36); Mean Corpuscular Volume 80.6 fL (81-99); Red Blood Count 5.27 M/mm3 (4.2-5.4); White Blood Count 8.5 K/mm3 (4.4-11.0)
[2022-04-11 18:11] LABS: Basophil% 0.5 % (0-1); Eosinophils% 3.4 % (0-5); Lymphocyte % 46.9 % (19-41); Mean Platelet Vol. 10.4 fl (6.2-12.0); Monocyte% 5.4 % (0-10); Neutrophil % 43.4 % (47-70); POSITIVE COUNT NO; POSITIVE DIFFERENTIAL NO; POSITIVE MORPHOLOGY NO; Platelet Count 317 K/mm3 (150-450); RBC Distribution Width CV 18.2 % (11.6-14.6); RBC Distribution Width SD 51.5 fl (35.1-43.9)
[2022-04-11 18:12] LABS: Absolute Lymphocyte Count 3.98 X10^3/uL (0.83-4.51); Absolute Neutrophil Count 3.7 X10^3/uL (2.0-7.7); Basophil# 0.04 X10^3/uL; Eosinophil# 0.29 X10^3/uL; Lymphocyte # 3.98 X10^3/ul (0.83-4.51); Monocyte# 0.46 X10^3/uL; Neutrophil # 3.68 X10^3/uL (2.7-7.7)
[2022-04-11 18:19] LABS: Internal QC Validated? YES +Cl - CLEAR BKGD
[2022-04-11 18:41] LABS: Pregnancy, Serum, hCG Quali. NEGATIVE Negative (0-9 Nonpreg)
[2022-04-11 18:50] VITALS: BP 145/97; PULSE 97; RESP 16; O2SAT 99
== END 2022-04-11 18:51 | disposition home or self-care (01) ==
PROVIDERS: Emergency Provider Emergency Medicine; Visit Provider Emergency Medicine
DX: N93.8 Other specified abnormal uterine and vaginal bleeding (principal); R10.2 Pelvic and perineal pain; F17.210 Nicotine dependence, cigarettes, uncomplicated
CPT/HCPCS: 84703; 85025; 99282

== ENCOUNTER 2022-04-17 02:01 | Emergency (ER) | payer MEDICAID, SELFPAY ==
[2022-04-17 02:02] VITALS: BP 137/79; PULSE 88; RESP 17; TEMP 36.5; O2SAT 99; BMI 40.4
--- NOTE | 2022-04-17 02:12 | ED.VIS.GI ---
HPI HPI - GI History of Present Illness Chief Complaint: Nausea/Vomiting Informant: patient Abdominal Pain/Flank Pain Onset: Days (3) Context: Gradual Onset Timing: Intermittent Quality: Cramping and Stabbing Location: Diffuse Worsened by: - (Vomiting) Relieved by: Nothing Nausea/Vomiting/Emesis GI Symptom: Positive for Nausea and Vomiting Onset: Days (3) Quality: Positive for Nonbilious; Negative for Blood streaks, Coffee ground or Hematemesis Diarrhea/Melena/Hematochezia GI Symptom: Negative for Diarrhea, Melena or Hematochezia Associated Symptoms Associated Symptoms: Negative for Dysuria, Frequency or Hematuria LMP: 2 to 3 weeks ago Narrative Narrative: Patient presents with nausea and vomiting that has been constant for the last 3 days. Patient states she is unable to keep anything down for the past 3 days. Patient denies any hematemesis or coffee-ground emesis. Patient admits to some upper abdominal pain that is worse after she vomits. Patient describes it as cramping and stabbing. Patient denies any radiation of the pain. Patient denies any diarrhea, melena, or hematochezia. Patient denies any dysuria, frequency, or hematuria. Patient states her last menstrual period was approximately 2 to 3 weeks ago. [facility] Medical History Anxiety Bipolar disorder Depression Home Medications cephalexin 500 mg capsule 500 mg PO Q6H 7 days #28 caps 07/07/21 [Rx Last Taken Unknown] ondansetron 4 mg disintegrating tablet 4 mg PO Q8H PRN Nausea 07/07/21 [History Last Taken Unknown] [id number] 1 mg tablet 1 tab PO DAILY 07/07/21 [History Last Taken Unknown] ondansetron 4 mg disintegrating tablet 4 mg PO Q8H PRN PRN Nausea #10 tabs 04/17/22 [Rx Last Taken Unknown] Allergy/AdvReac Type Severity Reaction Status Date / Time No Known Allergies Allergy Verified 07/24/21 18:17 Surgical History History of section History of placement of ear tubes History of tonsillectomy and adenoidectomy Social History Smoking Status: Current every day smoker tobacco type: cigarettes ROS ROS ED Constitutional Constitutional ED: Denies chills or fever(s) Eyes Eyes: Denies blurry vision or change in vision ENT ENT ED: Denies rhinorrhea or sore throat Cardiovascular Cardiovascular: Denies chest pain or palpitations Respiratory/Chest Respiratory/Chest: Denies cough or dyspnea Gastrointestinal Gastrointestinal: Reports abdominal pain, nausea and vomiting; Denies diarrhea Genitourinary Genitourinary ED: Denies dysuria or hematuria Musculoskeletal Musculoskeletal: Reports back pain; Denies neck pain Integumentary Denies abscess or rash Neurologic Neurologic: Denies headache(s) or weakness Allergic/Immunologic Allergic/Immunologic ED: Denies mouth swelling or urticaria EXAM Physical Exam Const Vital Signs: 04/17/22 02:02 Temperature 97.7 F L Temperature Source Temporal Pulse Rate 88 Respiratory Rate 17 Blood Pressure 137/79 H Blood Pressure Mean 98 Pulse Ox 99 Oxygen Delivery Method Room Air Positive well nourished, well developed and obese General Appearance ED: well developed and NAD Nutritional Appearance: obese HEENT Reports moist mucous membranes Neck supple and no JVD Resp normal respiratory effort and clear to auscultation bilaterally Cardio regular rate, regular rhythm and no murmurs GI normal to inspection, nondistended, normoactive bowel sounds and non-tender Palpation: soft Extremity normal to inspection General Extremety ED: Negative for edema or tenderness General Extremity: Negative for edema Neuro oriented x3, CN's II-XII intact bilaterally and no sensory deficits noted Sensorium / Orientation: alert Motor Exam: strength 5/5 throughout Psych mental status grossly normal Skin no rashes or lesions noted MDM MDM MDM Narrative Medical decision making narrative: Patient was given IV fluids and Zofran. CBC was within normal limits. Comprehensive metabolic profile was essentially within normal limits. Lipase was normal. Serum hCG was negative. Urinalysis does not show any evidence of urinary tract infection or hematuria. Patient was advised of her findings. Patient was given a prescription for Zofran. Patient was instructed to start with a liquid diet and advance as tolerated. Patient was instructed to follow-up with her primary care physician in 3 to 5 days. Patient understood and was agreeable with the plan. All questions were answered. Lab Data Attestation: I reviewed the patient's lab results. Labs: Laboratory Results - last 24 hr 0804/17/22 04/17/22 02:35 02:35 02:35 WBC 9.2 RBC 5.15 Hgb 13.4 Hct 41.5 MCV 80.6 L MCH 26.0 L MCHC 32.3 RDW Std Deviation 51.0 H RDW Coeff of [place] 17.7 H Plt Count 293 MPV 10.6 Immature Gran % (Auto) 0.200 Neut % (Auto) 42.1 L Lymph % (Auto) 48.3 H [place] % (Auto) 6.1 Eos % (Auto) 2.9 Baso % (Auto) 0.4 Absolute Neuts (auto) 3.9 Absolute Lymphs (auto) 4.45 Nucleated RBC % 0 Sodium 141 Potassium 3.3 L Chloride 110 H Carbon Dioxide 23.0 Anion Gap 8 BUN 7 Creatinine 0.90 Estim Creat Clear Calc 85.38 Est GFR (MDRD) Af Amer 101 Est GFR (MDRD) Non-Af 83 BUN/Creatinine Ratio 7.8 L Glucose 101 Calcium 9.6 Total Bilirubin 0.30 AST 28 ALT 48 Alkaline Phosphatase 75 Total Protein 7.1 Albumin 3.4 Globulin 3.7 Albumin/Globulin Ratio 0.9 Lipase 100 Serum , Qual NEGATIVE Urine Color Urine Clarity Urine pH Ur Specific [place] Urine Protein Urine Glucose (UA) Urine Ketones Urine Occult Blood Urine Nitrite Urine Bilirubin Urine Urobilinogen Ur Leukocyte Esterase Urine RBC Urine WBC Ur Squamous Epith Cells Urine Bacteria Urine Mucus 04/17/22 02:53 WBC RBC Hgb Hct MCV MCH MCHC RDW Std Deviation RDW Coeff of [place] Plt Count MPV Immature Gran % (Auto) Neut % (Auto) Lymph % (Auto) [place] % (Auto) Eos % (Auto) Baso % (Auto) Absolute Neuts (auto) Absolute Lymphs (auto) Nucleated RBC % Sodium Potassium Chloride Carbon Dioxide Anion Gap BUN Creatinine Estim Creat Clear Calc Est GFR (MDRD) Af Amer Est GFR (MDRD) Non-Af BUN/Creatinine Ratio Glucose Calcium Total Bilirubin AST ALT Alkaline Phosphatase Total Protein Albumin Globulin Albumin/Globulin Ratio Lipase Serum , Qual Urine Color Yellow Urine Clarity Clear Urine pH 5.0 Ur Specific [place] 1.025 Urine Protein 30 H Urine Glucose (UA) Normal Urine Ketones 5 H Urine Occult Blood Negative Urine Nitrite Negative Urine Bilirubin Negative Urine Urobilinogen 1 H Ur Leukocyte Esterase 100 H Urine RBC 0 SEEN Urine WBC 0-5 SEEN Ur Squamous Epith Cells 0-5 SEEN Urine Bacteria 1+ Urine Mucus 3+ Discharge Plan Triage Chief Complaint: Nausea/Vomiting ED Provider: Dominic Nascimento Dx/Rx/DC Orders Clinical Impression: Nausea and vomiting, Abdominal pain, Morbid obesity with BMI of 40.0-44.9, adult Instructions: ED Vomiting (Adult) Prescriptions: New ondansetron [ondansetron] 4 mg tablet,disintegrating 4 mg PO Q8H PRN PRN (Reason: Nausea) Qty: 10 0RF No Action 1 mg Tablet 1 tab PO DAILY ondansetron [Zofran ODT] 4 mg Tablet,Disintegrating 4 mg PO Q8H PRN (Reason: Nausea) cephalexin 500 mg capsule 500 mg PO Q6H 7 Days Qty: 28 0RF Primary Care Provider: Care Physician,No Primary Referrals: Rosalind Crooks MD [Med Staff - [employer]] - 3-5 Days Care Physician,No Primary [Primary Care Provider] - Disposition Disposition: Home, Self Care
[2022-04-17 02:40] LABS: Absolute Lymphocyte Count 4.45 X10^3/uL (0.83-4.51); Absolute Neutrophil Count 3.9 X10^3/uL (2.0-7.7); Basophil# 0.04 X10^3/uL; Basophil% 0.4 % (0-1); Eosinophil# 0.27 X10^3/uL; Eosinophils% 2.9 % (0-5); Hematocrit 41.5 % (37-47); Hemoglobin 13.4 g/dL (12.0-15.0); Lymphocyte # 4.45 X10^3/ul (0.83-4.51); Lymphocyte % 48.3 % (19-41); Mean Corp Hgb Conc 32.3 g/dL (32-36); Mean Corpuscular Volume 80.6 fL (81-99); Mean Platelet Vol. 10.6 fl (6.2-12.0); Monocyte# 0.56 X10^3/uL; Monocyte% 6.1 % (0-10); NRBC Flagged by Analyzer 0 % (0-5); Neutrophil # 3.88 X10^3/uL (2.7-7.7); Neutrophil % 42.1 % (47-70); Platelet Count 293 K/mm3 (150-450); RBC Distribution Width CV 17.7 % (11.6-14.6); Red Blood Count 5.15 M/mm3 (4.2-5.4); White Blood Count 9.2 K/mm3 (4.4-11.0)
[2022-04-17] MEDS: Ondansetron 4 MG/2 ML Vial IV (02:49)
[2022-04-17] MEDS: 0.9% Normal Saline 1,000 ML 1000 ML IV (02:49)
[2022-04-17 02:52] LABS: Internal QC Validated? YES +Cl - CLEAR BKGD; Pregnancy, Serum, hCG Quali. NEGATIVE Negative
[2022-04-17 02:57] LABS: Red Blood Cells-Urine 0 SEEN /hpf (0-5)
[2022-04-17 02:58] LABS: Color, Urine Yellow (Yellow); Glucose, Dipstick Normal (Normal); Ketone-Dipstick 5 mg/dl (Negative); Leukocyte Esterase-Dipstick 100 /ul (Negative); Nitrite-Dipstick Negative (Negative); Occult Blood-Urine Negative /ul (Negative); Protein-Dipstick 30 mg/dl (Negative); Specific Gravity, Urine 1.025 (1.002-1.030); Urine Bilirubin Dipstick Negative (Negative); Urine Clarity Clear (Clear); Urine Urobilinogen 1 mg/dl (Normal)
[2022-04-17 02:59] LABS: ALB/GLOB Ratio 0.9 RATIO (0.9-2.4); AST(SGOT) 28 U/L (15-37); Alanine Aminotransfer ALT/SGPT 48 U/L (13-56); Albumin, Serum 3.4 g/dL (3.2-5.0); Alkaline Phosphatase 75 U/L (45-117); Anion Gap 8 (5-15); BUN 7 mg/dL (7-18); BUN/Creat Ratio 7.8 RATIO (10-20); Calcium,Total 9.6 mg/dL (8.5-10.1); Chloride 110 mmol/L (98-107); EST Glomerular Filtration Rate 83 mL/min (>60); Est Glom Filt Rate - Afr Amer 101 mL/min (>60); Estimated Creatinine Clearance 85.38 ml/min; Globulin 3.7 g/dL (2.2-4.2); Glucose 101 mg/dL (74-106); Lipase 100 U/L (73-393); Potassium 3.3 mmol/L (3.5-5.1); Protein, Total 7.1 g/dL (6.4-8.2); Sodium Level 141 mmol/L (136-145)
[2022-04-17 03:15] LABS: Bacteria 1+ /hpf (None Seen); Mucous, Urine 3+ /hpf (<or=2+); Squamous Epithelial Cells - UA 0-5 SEEN /hpf (5-10); White Blood Cells 0-5 SEEN /hpf (0-5)
[2022-04-17 03:55] VITALS: BP 122/68; PULSE 75; RESP 18; O2SAT 99
== END 2022-04-17 03:57 | disposition home or self-care (01) ==
LOC: ED 03:37
PROVIDERS: Emergency Provider Emergency Medicine; PCP Student in an Organized Health Care Education/Training Program; Visit Provider Emergency Medicine
DX: R10.9 Unspecified abdominal pain (principal); E66.01 Morbid (severe) obesity due to excess calories; Z68.41 Body mass index [BMI] 40.0-44.9, adult; R11.2 Nausea with vomiting, unspecified; F17.210 Nicotine dependence, cigarettes, uncomplicated
CPT/HCPCS: 80053; 81001; 83690; 84703; 85025; 96361; 96374; 99283; J7030; A4216; J2405